=== PATIENT | female | born 1995 ===

== ENCOUNTER 2022-07-19 16:28 | Emergency (ER) | payer BC ==
[2022-07-19 19:16] LABS: CARBON DIOXIDE,CO2 26.2 mmol/L (21.0-32.0)
== END 2022-07-19 21:24 | disposition home or self-care (01) ==
LOC: MW.ED 16:28
DX: R42 Dizziness and giddiness (principal); Z88.1 Allergy status to other antibiotic agents
CPT/HCPCS: 36415; 70450; 70450-26; 80053; 83735; 84443; 84703; 85025; 93010; 99284